=== PATIENT | male | born 1970 | race Hispanic/Latino ===

== ENCOUNTER 2018-07-25 10:49 | Emergency (ER) | payer OTHER ==
[~2018-07-25] VITALS: Ht 147.3 cm; Wt 65.0 kg
[~2018-07-25 10:49] MED LIST: IBUPROFEN600 MG PO; METFORMIN500 M2 PO
[2018-07-25] MEDS ORDERED: METFORMIN850 MG PO (11:30)
[2018-07-25 11:50] LABS: ALBUMIN 4.5 g/dL (3.2-5.0); ALKALINE PHOSPHATASE 155 u/l (38-126); ANION GAP 18 (6-22 (CALC)); BILIRUBIN, TOTAL 0.5 mg/dL (0.0-1.4); BUN 13 mg/dL (9-20); BUN/CREATININE RATIO 14 (12-20 (CALC)); CARBON DIOXIDE 25 mmol/l (22-30); CHLORIDE 100 mmol/l (95-108); CREATININE 0.9 mg/dL (0.7-1.3); GFR > 60 ML/MIN (>=60 (CALC)); GFR FOR AFR.AMER. > 60 ML/MIN (>=60 (CALC)); LIPASE 126 u/l (23-300); POTASSIUM 4.5 mmol/l (3.5-5.1); SGOT/AST 27 u/l (17-59); SODIUM 139 mmol/l (137-146); TOTAL PROTEIN 7.8 g/dL (6.3-8.2)
[2018-07-25 11:51] LABS: HEMATOCRIT 43.1 % (39.0-50.0); HEMOGLOBIN 14.9 g/dl (14.0-18.0); IMMATURE GRANULOCYTES 0.3 % (0.0-5.0); MEAN CELL VOLUME 83.7 fL CALC (80.0-100.0); MEAN CORPUSCULAR HGB 28.9 pG CALC (26.0-32.0); MEAN CORPUSCULAR HGB CONC 34.6 g/L CALC (32.0-36.0); NEUT# 4.86 thou/uL (1.82-7.42); RED BLOOD COUNT 5.15 mill/uL (4.70-6.10); RED CELL DISTRI WIDTH 12.6 % (11.5-15.5)
[2018-07-25 12:00] LABS: URINE BILIRUBIN - DIPSTICK NEGATIVE (NEGATIVE); URINE BLOOD DIPSTICK NEGATIVE (NEGATIVE); URINE COLOR YELLOW; URINE GLUCOSE - DIPSTICK >=1000 mg/dL (NEGATIVE); URINE KETONE NEGATIVE (NEGATIVE); URINE LEUK ESTERASE NEGATIVE (NEGATIVE); URINE NITRITE - DIPSTICK NEGATIVE (Negative); URINE PROTEIN - DIPSTICK NEGATIVE (NEG-TRACE); URINE SPECIFIC GRAVITY <=1.005; URINE UROBILINOGEN - DIPSTICK 0.2 E.U./dL (0.2)
[2018-07-25 15:07] VITALS: BP 142/92
--- NOTE | 2018-07-27 08:16 | NUR ---
PRELIMINARY CULTURE RESULTS CALLED TO IN THE ED. PT WAS SEEN FOR HYPERGLYCEMIA AND DISCHARGED HOME AFTER IMPROVING. BLOOD CULTURE SHOWS GROWTH IN ONLY 1/4 VIALS. SUSPECTED CONTANIMATE. NO NEW ORDERS AT THIS TIME PHARMACY WILL FOLLOW FOR FINAL C+S.
== END 2018-07-25 15:17 | disposition home or self-care (01) | DRG 639 ==
LOC: ED 10:49
PROVIDERS: Family Medicine
DX: E11.65 Type 2 diabetes mellitus with hyperglycemia (principal); Z79.84 Long term (current) use of oral hypoglycemic drugs

== ENCOUNTER 2018-08-29 03:34 | Emergency (ER) | payer OTHER ==
[~2018-08-29] VITALS: Ht 147.3 cm; Wt 77.0 kg
[~2018-08-29 03:34] MED LIST changes: +METFORMIN850 MG PO
[2018-08-29] MEDS ORDERED: AMOXICILLIN500 MG PO (04:47)
[2018-08-29] MEDS ORDERED: IBUPROFEN600 MG PO (04:47)
[2018-08-29] MEDS ORDERED: PERCOCET 5/325M1 TAB PO (04:47)
[2018-08-29 04:57] VITALS: BP 153/98
== END 2018-08-29 04:57 | disposition home or self-care (01) | DRG 159 ==
LOC: ED 03:34
DX: K04.7 Periapical abscess without sinus (principal)

== ENCOUNTER 2018-09-02 16:47 | Emergency (ER) | payer OTHER ==
[~2018-09-02] VITALS: Ht 147.3 cm; Wt 80.0 kg
[~2018-09-02 16:47] MED LIST changes: +AMOXICILLIN500 MG PO; +PERCOCET 5/325M1 TAB PO
[2018-09-02 18:04] LABS: HEMATOCRIT 43.2 % (39.0-50.0); IMMATURE GRANULOCYTES 0.3 % (0.0-5.0); MEAN CELL VOLUME 84.2 fL CALC (80.0-100.0); MEAN CORPUSCULAR HGB 29.2 pG CALC (26.0-32.0); MEAN CORPUSCULAR HGB CONC 34.7 g/L CALC (32.0-36.0); NEUT# 6.73 thou/uL (1.82-7.42); RED BLOOD COUNT 5.13 mill/uL (4.70-6.10)
[2018-09-02 18:23] LABS: ALBUMIN 4.9 g/dL (3.2-5.0); BILIRUBIN, TOTAL 0.5 mg/dL (0.0-1.4); CREATININE 1.7 mg/dL (0.7-1.3); TOTAL PROTEIN 8.6 g/dL (6.3-8.2)
[2018-09-02] MEDS ORDERED: GLIMEPIRIDE2 MG PO (18:59)
[2018-09-02] MEDS ORDERED: LOVASTATIN10 MG PO (19:00)
[2018-09-02 19:52] LABS: URINE BILIRUBIN - DIPSTICK NEGATIVE (NEGATIVE); URINE BLOOD DIPSTICK TRACE-LYSED (NEGATIVE); URINE COLOR YELLOW; URINE GLUCOSE - DIPSTICK NEGATIVE (NEGATIVE); URINE KETONE NEGATIVE (NEGATIVE); URINE LEUK ESTERASE NEGATIVE (NEGATIVE); URINE NITRITE - DIPSTICK NEGATIVE (Negative); URINE PH 5.5 (4.5-8.0); URINE PROTEIN - DIPSTICK 100 mg/dL (NEG-TRACE); URINE SPECIFIC GRAVITY >=1.030; URINE UROBILINOGEN - DIPSTICK 0.2 E.U./dL (0.2)
[2018-09-02 20:01] LABS: URINE RBC 0-2 RBC/hpf (0-5); URINE WHITE BLOOD CELL CAST FEW lpf
[2018-09-02] MEDS ORDERED: ZOFRAN4 MG/TAB PO (21:02)
[2018-09-02 21:22] VITALS: BP 127/71
== END 2018-09-02 21:22 | disposition home or self-care (01) | DRG 641 ==
LOC: ED 16:47
DX: E86.0 Dehydration (principal); R11.2 Nausea with vomiting, unspecified; R53.1 Weakness; X30.XXXA Exposure to excessive natural heat, initial encounter

== ENCOUNTER 2018-10-07 21:17 | Emergency (ER) | payer OTHER ==
[~2018-10-07] VITALS: Ht 147.3 cm; Wt 70.0 kg
[~2018-10-07 21:17] MED LIST changes: +GLIMEPIRIDE2 MG PO; +LOVASTATIN10 MG PO; +TORADOL OR; +ZOFRAN4 MG/TAB PO
[2018-10-07] MEDS ORDERED: ULTRAM50 M1 PO (22:00)
[2018-10-07] MEDS ORDERED: AMOXICILLIN500 MG PO (22:00)
[2018-10-07 22:06] VITALS: BP 147/97
== END 2018-10-07 22:17 | disposition home or self-care (01) | DRG 159 ==
LOC: ED 21:17
DX: K04.7 Periapical abscess without sinus (principal); E11.9 Type 2 diabetes mellitus without complications; Z79.84 Long term (current) use of oral hypoglycemic drugs